=== PATIENT | female | born 1975 | race Caucasian/White ===

== ENCOUNTER 2018-11-28 18:24 | Outpatient (CLI) | payer BC | END 2018-11-28 23:59 | disposition home or self-care (01) | LOC: RAD 18:24 | PROVIDERS: ATTEND Family Medicine | DX: R07.1 Chest pain on breathing (principal) | CPT/HCPCS: 71046 ==

== ENCOUNTER 2018-12-20 12:40 | Outpatient (CLI) | payer BC | END 2018-12-20 23:59 | disposition home or self-care (01) | LOC: MRI 12:40 | PROVIDERS: ATTEND Family Medicine | DX: M47.894 Other spondylosis, thoracic region (principal); M51.24 Other intervertebral disc displacement, thoracic region; M47.892 Other spondylosis, cervical region; M48.02 Spinal stenosis, cervical region; M25.78 Osteophyte, vertebrae | CPT/HCPCS: 72141-TC; 72146-TC ==

== ENCOUNTER 2018-12-26 15:51 | Outpatient (CLI) | payer BC ==
[2018-12-26 16:37] LABS: CREATININE 0.6 mg/dL (0.6-1.3)
== END 2018-12-26 23:59 | disposition home or self-care (01) ==
LOC: LAB 15:51
PROVIDERS: ATTEND Family Medicine
DX: M54.2 Cervicalgia (principal)
CPT/HCPCS: 36415; 82565-TC; 84520-TC

== ENCOUNTER 2019-01-09 10:18 | Outpatient (CLI) | payer BC ==
[2019-01-09] MEDS ORDERED: GADODIAMIDE 5 MMOL/10 ML VIAL IJ ONE (10:19)
[2019-01-09] MEDS ORDERED: GADODIAMIDE 2.5 MMOL/5 ML VIAL IJ ONE (10:19)
== END 2019-01-09 23:59 | disposition home or self-care (01) ==
LOC: MRI 10:18
PROVIDERS: ATTEND Family Medicine
DX: M48.02 Spinal stenosis, cervical region (principal); M50.23 Other cervical disc displacement, cervicothoracic region; M47.814 Spondylosis without myelopathy or radiculopathy, thoracic region; M25.78 Osteophyte, vertebrae
CPT/HCPCS: 70553; 72142; 72147; A9579 ×2

== ENCOUNTER 2019-01-12 16:10 | Outpatient (CLI) | payer BC | END 2019-01-12 23:59 | disposition home or self-care (01) | LOC: CT 16:10 | PROVIDERS: ATTEND Family Medicine | DX: R07.1 Chest pain on breathing (principal); R06.02 Shortness of breath; M47.814 Spondylosis without myelopathy or radiculopathy, thoracic region | CPT/HCPCS: 71250-TC ==

== ENCOUNTER 2020-02-17 21:07 | Emergency (ER) | payer BC, OTHER ==
[~2020-02-17] VITALS: Ht 162.6 cm; Wt 86.2 kg
--- NOTE | 2020-02-17 22:15 | NUR ---
PT PRESENTED TO THE ER WITH A C/O COUGH X 3 DAYS. PT WORKS AT 3 H[employer] AND NEEDS TO BE CLEARED TO GO BACK TO WORK.
--- NOTE | 2020-02-17 23:53 | NUR ---
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
--- NOTE | 2020-02-18 00:22 | NUR ---
Patient discharged to home in stable condition. Written and verbal after care instructions given. Patient verbalizes understanding of instruction. PT REC'D A COPY OF HER CXR. PT AMBULATED OUT WITH A STEADY GAIT. VSS. NAD NOTED.
[2020-02-18 00:23] VITALS: BP 118/75
== END 2020-02-18 00:23 | disposition home or self-care (01) ==
LOC: ER 21:12
DX: J02.8 Acute pharyngitis due to other specified organisms (principal); R05 Cough
CPT/HCPCS: 71046